=== PATIENT | female | born 1980 | race Caucasian/White ===

== ENCOUNTER 2021-07-30 07:36 | Emergency (ER) | payer OTHER ==
[2021-07-30 08:18] LABS: BASOPHIL 0.3 % (0-2); EOSINOPHIL 0 % (0-5); HCT 41.6 % (37.0-47.0); HGB 14.1 g/dl (12.5-16.0); MCH 30.9 pg (25.0-31.0); MCHC 33.9 g/dL (32.0-36.0); MONOCYTE 3.5 % (0-12); MPV 9.8 fL (6.0-9.5); NEUTROPHIL 88.8 % (41-80); NRBC 0; PLT 379 K/uL (150-400); RBC 4.57 M/uL (4.20-5.40); RDW 11.5 % (11.5-14.0); WBC 16.4 K/uL (4.0-10.5)
[2021-07-30 08:40] LABS: ALBUMIN 4.2 g/dL (3.4-5.0); BILIRUBIN - TOTAL 0.8 mg/dL (0.2-1.0); BUN/CREAT RATIO (CALC) 21.2 RATIO; CREATININE 0.52 mg/dL (0.51-0.95); GLOBULIN (CALCULATION) 3.1 g/dL; POTASSIUM 3.8 mmol/L (3.5-5.1); TOTAL PROTEIN 7.3 g/dL (6.4-8.2)
[2021-07-30 09:07] LABS: BILIRUBIN NEGATIVE (NEGATIVE); BLOOD 1+ Ery/uL (NEGATIVE); CLARITY CLOUDY (CLEAR); COLOR YELLOW (YELLOW); GLUCOSE (U) NORMAL (NORMAL); LEUKOCYTES NEGATIVE Leu/uL (NEGATIVE); NITRITE NEGATIVE (NEGATIVE); PROTEIN NEGATIVE (NEGATIVE); UROBILINOGEN 0.2 mg/dL (0.2-1.0); pH 7.5 (5.0-9.0)
[2021-07-30 09:22] LABS: AMPHETAMINES NEGATIVE (NEGATIVE); BARBITURATES NEGATIVE (NEGATIVE); ECSTASY (MDMA) NEGATIVE (NEGATIVE); MARIJUANA (THC) NEGATIVE (NEGATIVE); METHADONE NEGATIVE (NEGATIVE); OPIATES NEGATIVE (NEGATIVE); OXYCODONE NEGATIVE (NEGATIVE)
[2021-07-30 09:39] LABS: BACTERIA 2+; URINARY WBC RARE
[2021-07-30] MEDS ORDERED: PEPCID AC20 MG PO (09:59)
[2021-07-30] MEDS ORDERED: CARAFATE1 GM PO (09:59)
== END 2021-07-30 10:49 | disposition home or self-care (01) ==
LOC: FER 07:36
PROVIDERS: Emergency Medicine
DX: B34.9 Viral infection, unspecified (principal); R07.89 Other chest pain; K21.9 Gastro-esophageal reflux disease without esophagitis; Z20.822 Contact with and (suspected) exposure to COVID-19
CPT/HCPCS: 36415; 71045; 80053; 80305; 81001; 84145; 84484; 85025; 85379; J2270; J2405; J7030; U0002